=== PATIENT | female | born 1995 | race Caucasian/White ===

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

== ENCOUNTER → 2017-01-14 | Outpatient (CLI) | payer OTHER ==
[2017-01-14 16:45] LABS: Basophils % (A) 0 %; CH 25.8; CHCM 31.1; Eosinophils # (A) 0.1 k/uL (0-0.7); Eosinophils % (A) 2 %; HCT 40.9 % (34.0-46.0); HDW 2.13; HGB 13.1 gm/dL (11.4-16.0); Luc # (Auto) 0.08; Luc % (Auto) 1; Lymphocytes # (A) 2.3 k/uL (1.0-4.8); Lymphocytes % (A) 35 %; MCH 26.7 pg (25.0-35.0); MCV 83.4 fL (80.0-100.0); Mean Platelet Volume 7.7; Monocytes # (A) 0.2 k/uL (0-1.0); Monocytes % (A) 4 %; Neutrophils # (A) 3.9 k/uL (1.3-7.7); Neutrophils % (A) 58 %; RDW 12.6 % (11.5-15.5); WBC 6.6 k/uL (4.0-11.0); WBC (Perox) 6.96
[2017-01-14 17:28] LABS: ALT 56 U/L (9-52); AST 35 U/L (14-36); Alkaline Phosphatase 61 U/L (38-126); Anion Gap 12 mmol/L; Blood Urea Nitrogen 12 mg/dL (7-17); Calcium 9.6 mg/dL (8.4-10.2); Carbon Dioxide 26 mmol/L (22-30); Chloride 104 mmol/L (98-107); Glucose 101 mg/dL (74-99); Non-African American GFR(MDRD) >60 (>60 ml/min/1.73 sqM); Potassium 4.1 mmol/L (3.5-5.1); Sodium 142 mmol/L (137-145); Total Bilirubin 0.3 mg/dL (0.2-1.3); Total Protein 7.1 g/dL (6.3-8.2)
[2017-01-14 17:45] LABS: Follicle Stimulating Hormone 4.1 mIU/mL
== END | disposition home or self-care (01) ==
LOC: LABWHC1 16:19
PROVIDERS: ATTEND Pediatrics
DX: R10.9 Unspecified abdominal pain (principal)
CPT/HCPCS: 36415; 80053; 83001; 83002; 85025

== ENCOUNTER → 2017-01-17 | Outpatient (CLI) | payer OTHER ==
--- NOTE | 2017-01-17 09:24 | US ---
EXAMINATION TYPE: US pelvic complete DATE OF EXAM: 01/17/2017 COMPARISON: NONE CLINICAL HISTORY: N92.0 Excessive and frequent menstruation cycle. TECHNIQUE: Transabdominal (TA) Date of LMP: 2 wks ago EXAM MEASUREMENTS: Uterus: 8.6 x 4.4 x 5.4 cm Endometrial Stripe: 1.0 cm Right Ovary: 4.1 x 2.5 x 2.9 cm Left Ovary: 3.3 x 1.7 x 2.8 cm 1. Uterus: Anteverted wnl 2. Endometrium: wnl 3. Right Ovary: wnl 4. Left Ovary: wnl 5. Bilateral Adnexa: wnl 6. Posterior cul-de-sac: no free fluid seen IMPRESSION: No significant abnormality appreciated.
== END ==
LOC: RADUSWWP 07:58
PROVIDERS: ATTEND Pediatrics
DX: N92.0 Excessive and frequent menstruation with regular cycle (principal)
CPT/HCPCS: 76856

== ENCOUNTER → 2017-05-09 | Outpatient (CLI) | payer OTHER ==
--- NOTE | 2017-05-09 18:02 | XR ---
EXAMINATION TYPE: XR toes LT DATE OF EXAM: 05/09/2017 COMPARISON: NONE HISTORY: Dogbite to the big toe TECHNIQUE: 3 views FINDINGS: I see no fracture nor dislocation. Joint spaces are normal. Soft tissues show swelling on the lateral aspect of the big toe. IMPRESSION: Soft tissue swelling. No fracture.
== END | disposition home or self-care (01) ==
LOC: RADXRMAIN 17:21
PROVIDERS: ATTEND Emergency Medicine
DX: M79.89 Other specified soft tissue disorders (principal); S91.152A Open bite of left great toe without damage to nail, initial encounter